=== PATIENT | female | born 1985 | race Caucasian/White ===

== ENCOUNTER 2016-10-31 15:00 | Emergency (ER) | payer OTHER | END 2016-10-31 19:30 | disposition home or self-care (01) | LOC: FER 15:00 | DX: S16.1XXA Strain of muscle, fascia and tendon at neck level, initial encounter (principal); S86.211A Strain of muscle(s) and tendon(s) of anterior muscle group at lower leg level, right leg, initial encounter; I10 Essential (primary) hypertension; Z88.0 Allergy status to penicillin; Z88.6 Allergy status to analgesic agent; Z88.8 Allergy status to other drugs, medicaments and biological substances; Z79.899 Other long term (current) drug therapy; V49.40XA Driver injured in collision with unspecified motor vehicles in traffic accident, initial encounter; Y92.410 Unspecified street and highway as the place of occurrence of the external cause | CPT/HCPCS: 73502; 73552; 73560; 99284 ==

== ENCOUNTER 2021-07-26 23:34 | Emergency (ER) | payer OTHER ==
[~2021-07-26 23:34] MED LIST: BENTYL10 MG PO; CETIRIZINE HCL10 MG PO; CLONAZEPAM 1MG T1 MG PO; FLEXERIL10 MG PO; GABAPENTIN800 MG PO; HCTZ25 MG PO; HYDROCODON-ACE1 EAC4 PO; HYDROCORTISONE30 G5 TOP; IBUPROFEN800 MG PO; KEFLEX250 MG PO; KLONOPIN0.5 MG PO; NEURONTIN400 MG PO; NORCO 5-325 TA1 EACH PO; POTASSIUM CHLO10 ME1 PO; ZOFRAN4 MG PO; ZYRTEC10 M3 PO
[2021-07-27 01:02] LABS: BASOPHIL 0.3 % (0-2); EOSINOPHIL 1.5 % (0-5); HCT 42.7 % (37.0-47.0); HGB 14.5 g/dl (12.5-16.0); LYMPHOCYTE 29.6 % (15-48); MCH 31.6 pg (25.0-31.0); MONOCYTE 10.9 % (0-12); MPV 11.1 fL (6.0-9.5); NEUTROPHIL 57.6 % (41-80); NRBC 0; PLT 206 K/uL (150-400); RBC 4.59 M/uL (4.20-5.40); RDW 12.7 % (11.5-14.0); WBC 10.9 K/uL (4.0-10.5)
[2021-07-27 01:41] LABS: BILIRUBIN - TOTAL 0.5 mg/dL (0.2-1.0); BUN/CREAT RATIO (CALC) 15.3 RATIO; CREATININE 0.72 mg/dL (0.51-0.95); GLOBULIN (CALCULATION) 3.2 g/dL; TOTAL PROTEIN 7.2 g/dL (6.4-8.2)
[2021-07-27 01:45] LABS: BILIRUBIN NEGATIVE (NEGATIVE); BLOOD NEGATIVE Ery/uL (NEGATIVE); CLARITY CLEAR (CLEAR); COLOR YELLOW (YELLOW); GLUCOSE (U) NORMAL (NORMAL); LEUKOCYTES NEGATIVE Leu/uL (NEGATIVE); NITRITE NEGATIVE (NEGATIVE); PROTEIN NEGATIVE (NEGATIVE); UROBILINOGEN 0.2 mg/dL (0.2-1.0)
[2021-07-27 01:59] LABS: POTASSIUM 2.6 mmol/L (3.5-5.1)
[2021-07-27 02:13] LABS: LACTIC ACID 1.7 mmol/L (0.4-1.9)
[2021-07-27] MEDS ORDERED: POTASSIUM20 MEQ/11 PO (05:09)
[2021-07-27] MEDS ORDERED: DILAUDID2 MG PO (05:47)
== END 2021-07-27 05:52 | disposition home or self-care (01) ==
LOC: FER 23:34
PROVIDERS: Emergency Medicine Emergency Medical Services
DX: R10.32 Left lower quadrant pain (principal); E87.6 Hypokalemia; I10 Essential (primary) hypertension; F17.200 Nicotine dependence, unspecified, uncomplicated; Z88.0 Allergy status to penicillin; Z88.1 Allergy status to other antibiotic agents; Z91.040 Latex allergy status
CPT/HCPCS: 36415; 76830; 80053; 81003; 83605; 83690; 85025; J1170; J1885; J2270; J2405; J3480; J7030; Q9967

== ENCOUNTER 2021-08-19 01:26 | Emergency (ER) | payer OTHER ==
[~2021-08-19 01:26] MED LIST changes: +DILAUDID2 MG PO; +POTASSIUM20 MEQ/11 PO
[2021-08-19 02:18] LABS: BASOPHIL 0.3 % (0-2); EOSINOPHIL 1.6 % (0-5); HCT 42.5 % (37.0-47.0); HGB 14.3 g/dl (12.5-16.0); LYMPHOCYTE 24.9 % (15-48); MCH 31.2 pg (25.0-31.0); MCHC 33.6 g/dL (32.0-36.0); MCV 92.8 fL (78.0-100.0); MPV 11.4 fL (6.0-9.5); NEUTROPHIL 56.9 % (41-80); NRBC 0; PLT 209 K/uL (150-400); RBC 4.58 M/uL (4.20-5.40); RDW 13.1 % (11.5-14.0); WBC 7.4 K/uL (4.0-10.5)
[2021-08-19 02:30] LABS: ALBUMIN 3.6 g/dL (3.4-5.0); BILIRUBIN - TOTAL 0.2 mg/dL (0.2-1.0); GLOBULIN (CALCULATION) 3.2 g/dL; POTASSIUM 3.5 mmol/L (3.5-5.1); TOTAL PROTEIN 6.8 g/dL (6.4-8.2)
[2021-08-19 02:38] LABS: CREATININE 0.95 mg/dL (0.51-0.95)
[2021-08-19 02:40] LABS: BILIRUBIN NEGATIVE (NEGATIVE); BLOOD NEGATIVE Ery/uL (NEGATIVE); CLARITY CLEAR (CLEAR); COLOR YELLOW (YELLOW); GLUCOSE (U) NORMAL (NORMAL); LEUKOCYTES NEGATIVE Leu/uL (NEGATIVE); NITRITE NEGATIVE (NEGATIVE); PROTEIN NEGATIVE (NEGATIVE); UROBILINOGEN 0.2 mg/dL (0.2-1.0); pH 7.5 (5.0-9.0)
[2021-08-19] MEDS ORDERED: PHENERGAN25 M1 PO (04:38)
[2021-08-19] MEDS ORDERED: NAPROXEN500 MG PO (04:38)
== END 2021-08-19 05:09 | disposition home or self-care (01) ==
LOC: FER 01:26
PROVIDERS: Emergency Medicine
DX: U07.1 COVID-19 (principal); F17.210 Nicotine dependence, cigarettes, uncomplicated; Z88.0 Allergy status to penicillin; Z88.1 Allergy status to other antibiotic agents; Z88.8 Allergy status to other drugs, medicaments and biological substances
CPT/HCPCS: 36415; 80053; 81003; 83690; 85025; J1170; J1885; J2405; J7030

== ENCOUNTER → 2021-12-30 | Day surgery (SDC) | payer OTHER ==
[~2021-12-30] VITALS: Ht 154.9 cm; Wt 105.3 kg
[~2021-12-30] MED LIST changes: +FEXOFENADINE H180 MG PO; +LATUDA80 MG PO; +NAPROXEN500 MG PO; +ONDANSETRON ODT4 MG PO; +PERCOCET 7.5/321 TAB PO; +PHENERGAN25 M1 PO
[2021-12-30 09:21] LABS: HCG (URINE) SCREEN NEGATIVE (NEGATIVE)
[2021-12-30 09:50] LABS: BILIRUBIN - TOTAL 0.4 mg/dL (0.2-1.0); BUN/CREAT RATIO (CALC) 13.2 RATIO; CREATININE 0.76 mg/dL (0.51-0.95); GLOBULIN (CALCULATION) 3.1 g/dL; POTASSIUM 3.3 mmol/L (3.5-5.1); TOTAL PROTEIN 7.1 g/dL (6.4-8.2)
== END | disposition home or self-care (01) ==
LOC: FAS 09:00
PROVIDERS: Obstetrics & Gynecology
DX: N93.9 Abnormal uterine and vaginal bleeding, unspecified (principal); N84.0 Polyp of corpus uteri; N83.201 Unspecified ovarian cyst, right side; I10 Essential (primary) hypertension; E78.00 Pure hypercholesterolemia, unspecified; J45.909 Unspecified asthma, uncomplicated; F17.210 Nicotine dependence, cigarettes, uncomplicated; M79.7 Fibromyalgia; F43.10 Post-traumatic stress disorder, unspecified; F31.9 Bipolar disorder, unspecified; Z79.899 Other long term (current) drug therapy; Z88.0 Allergy status to penicillin; Z88.5 Allergy status to narcotic agent; Z88.8 Allergy status to other drugs, medicaments and biological substances
CPT/HCPCS: 36415; 80053; 84703; 93005; J1100; J1170; J2250; J2405; J2704; J3010; J7050; J7120; Q9968

== ENCOUNTER 2022-04-10 13:15 | Emergency (ER) | payer OTHER ==
[2022-04-10 14:06] LABS: BILIRUBIN NEGATIVE (NEGATIVE); BLOOD NEGATIVE Ery/uL (NEGATIVE); CLARITY CLEAR (CLEAR); COLOR YELLOW (YELLOW); GLUCOSE (U) NORMAL (NORMAL); LEUKOCYTES NEGATIVE Leu/uL (NEGATIVE); NITRITE NEGATIVE (NEGATIVE); PROTEIN NEGATIVE (NEGATIVE); UROBILINOGEN 0.2 mg/dL (0.2-1.0)
[2022-04-10 14:31] LABS: BASOPHIL 0.4 % (0-2); EOSINOPHIL 1.1 % (0-5); HCT 41.2 % (37.0-47.0); HGB 13.8 g/dl (12.5-16.0); MCH 29.9 pg (25.0-31.0); MCHC 33.5 g/dL (32.0-36.0); MCV 89.2 fL (78.0-100.0); MONOCYTE 10.5 % (0-12); MPV 11.1 fL (6.0-9.5); NEUTROPHIL 62.7 % (41-80); NRBC 0; PLT 253 K/uL (150-400); RBC 4.62 M/uL (4.20-5.40); RDW 13.7 % (11.5-14.0); WBC 9.7 K/uL (4.0-10.5)
[2022-04-10 14:41] LABS: BUN/CREAT RATIO (CALC) 7.9 RATIO; CREATININE 0.63 mg/dL (0.51-0.95); POTASSIUM 2.8 mmol/L (3.5-5.1)
[2022-04-10 14:57] LABS: CORONAVIRUS 2019 SARS-COV-2 NEGATIVE (NEGATIVE); INFLUENZA A NAA NEGATIVE (NEGATIVE)
[2022-04-10] MEDS ORDERED: PHENERGAN25 M1 PO (17:20)
== END 2022-04-10 17:36 | disposition home or self-care (01) ==
LOC: FER 13:15
PROVIDERS: Nurse Practitioner Family
DX: B34.9 Viral infection, unspecified (principal); E87.6 Hypokalemia; J45.909 Unspecified asthma, uncomplicated; Z88.0 Allergy status to penicillin; Z88.5 Allergy status to narcotic agent; Z88.6 Allergy status to analgesic agent; Z20.822 Contact with and (suspected) exposure to COVID-19
CPT/HCPCS: 36415; 80048; 81003; 83690; 85025; J2270; J2405; J2550; J3480; J7030; J7040; U0002